=== PATIENT | male | born 2000 | race Two or more races ===

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

== ENCOUNTER → 2019-03-03 | Outpatient (CLI) | payer OTHER | END | disposition home or self-care (01) | LOC: TOM 15:20 | DX: S80.01XA Contusion of right knee, initial encounter (principal) ==